=== PATIENT | female | born 1985 | race Caucasian/White ===

== ENCOUNTER 2019-12-17 01:34 | Emergency (ER) | payer OTHER ==
[~2019-12-17] VITALS: Ht 162.6 cm; Wt 104.3 kg
[2019-12-17] MEDS ORDERED: PROZAC 10 MG CA10 MG PO (01:47)
[2019-12-17] MEDS ORDERED: TORADOL 10 MG T10 MG PO (02:28)
[2019-12-17] MEDS ORDERED: PREDNISONE 10 M10 MG PO (02:28)
[2019-12-17 02:41] VITALS: BP 139/102
== END 2019-12-17 02:42 | disposition home or self-care (01) ==
LOC: M.ERS 01:34
DX: G44.209 Tension-type headache, unspecified, not intractable (principal)